=== PATIENT | male | born 1955 | race Caucasian/White ===

== ENCOUNTER → 2020-10-30 | Outpatient (CLI) | payer OTHER | END | disposition home or self-care (01) | LOC: OIH 12:37 | PROVIDERS: ATTEND Internal Medicine Cardiovascular Disease | DX: Z13.6 Encounter for screening for cardiovascular disorders (principal) | CPT/HCPCS: 75571 ==

== ENCOUNTER 2021-08-20 07:45 | Day surgery (SDC) | payer MEDICARE ==
[2021-08-19 10:24] LABS: BASOPHILS % (AUTO) 0.4 % (0.0-5.0); EOSINOPHILS % (AUTO) 0.7 % (0.0-8.0); HEMATOCRIT 45.5 % (42-54); LYMPHOCYTES % (AUTO) 40.4 % (21.0-51.0); MEAN CORPUSCULAR HGB CONC 32.1 g/dL (32.0-36.0); MEAN CORPUSCULAR VOLUME 90.5 fL (79-99); MONOCYTES % (AUTO) 7.4 % (3.0-13.0); NEUTROPHILS % (AUTO) 50.7 % (40.0-77.0); PLATELET COUNT (AUTO) 177 K/uL (130-400); RED BLOOD CELL COUNT(AUTO) 5.03 MIL/uL (4.50-6.20); RED CELL DISTRIBUTION WIDTH 12.8 % (11.0-15.5); WHITE BLOOD COUNT (AUTO) 6.8 K/uL (4.8-10.8)
[2021-08-19 10:35] LABS: CREATININE 1.1 mg/dL (0.5-1.5); POTASSIUM 4.2 mmol/L (3.5-5.1)
[2021-08-19 10:40] LABS: INR 1.12 (0.85-1.15); PROTHROMBIN TIME 12.1 SEC (9.6-11.6)
[2021-08-19 10:41] LABS: PARTIAL THROMBOPLASTIN TIME 26.2 SEC (26.3-35.5)
[~2021-08-20] VITALS: Ht 172.7 cm; Wt 84.2 kg
[2021-08-20] VITALS (10 sets, daily range): BP systolic 99–125; BP diastolic 64–74
[~2021-08-20 07:45] MED LIST: 0.9% NACL 500ML IV.SOLN 500 ML IV SCH; ASPI-1443 PO; CEFAZOLIN SODIUM 1 GM VIAL IVP SCH; CLON1TAB12 PO; LISI1TAB32 PO; METO-408 PO; MVIT PO; ROSU10TA28 PO; saw palmetto PO; testosterone PO; vitamin b12 PO
[2021-08-20] MEDS ORDERED: 0.9%NACL 1000ML 1,000 ML IV ONE (08:50)
[2021-08-20] MEDS ORDERED: BUPIVACAINE/PF 0.25% 30ML VIAL IJ ONE (11:57)
[2021-08-20] MEDS ORDERED: MEPERIDINE-PF 25 MG/ML SYG ONE ×3 (11:57→12:51)
[2021-08-20] MEDS ORDERED: LIDOCAINE HCL 1% MDV 50ML VIAL ONE (11:58)
[2021-08-20] MEDS ORDERED: MIDAZOLAM HCL 1 MG/ML 2ML VIAL ONE ×3 (11:58→12:51)
[2021-08-20] MEDS ORDERED: IOHEXOL-350 50ML VIAL IV ONE (12:54)
[2021-08-20] MEDS ORDERED: ACETAMINOPHEN 325 MG TAB ONE (16:11)
== END 2021-08-20 17:30 | disposition home or self-care (01) ==
LOC: DAH 07:45
PROVIDERS: ATTEND Internal Medicine Cardiovascular Disease
DX: G90.01 Carotid sinus syncope (principal); Z20.822 Contact with and (suspected) exposure to COVID-19; I25.10 Atherosclerotic heart disease of native coronary artery without angina pectoris; I10 Essential (primary) hypertension; E78.5 Hyperlipidemia, unspecified; Z79.01 Long term (current) use of anticoagulants; Z79.82 Long term (current) use of aspirin; Z79.899 Other long term (current) drug therapy; Z90.49 Acquired absence of other specified parts of digestive tract; Z98.890 Other specified postprocedural states; Z82.49 Family history of ischemic heart disease and other diseases of the circulatory system; Z83.3 Family history of diabetes mellitus
CPT/HCPCS: 33208; 36415; 71045; 80048; 85025; 85610; 85730; 93005; A4215; A4216; A4221; A4222; A4223 ×3; A4606; A4663; A6260; C1785; C1898 ×2; J0690; J2175 ×3; J2250 ×3; J3490 ×2; J7030; Q9967; 99156; 99157

== ENCOUNTER 2023-08-27 08:51 | Emergency (ER) | payer MEDICARE ==
[~2023-08-27] VITALS: Ht 172.7 cm; Wt 80.7 kg
[~2023-08-27 08:51] MED LIST changes: -0.9% NACL 500ML IV.SOLN 500 ML IV SCH; -CEFAZOLIN SODIUM 1 GM VIAL IVP SCH; -LISI1TAB32 PO; +LISI1TAB49 PO
[2023-08-27 09:57] LABS: BASOPHILS # (AUTO) 0.04 K/uL (0.00-0.20); BASOPHILS % (AUTO) 0.5 % (0.0-5.0); EOSINOPHILS # (AUTO) 0.08 K/uL (0.00-0.70); EOSINOPHILS % (AUTO) 0.9 % (0.0-8.0); HEMATOCRIT 39.8 % (42-54); IMMATURE GRANULOCYTE ABSOLUTE 0.03 K/uL (0-1); LYMPHOCYTES # (AUTO) 2.4 K/uL (1.0-4.8); LYMPHOCYTES % (AUTO) 27.6 % (21.0-51.0); MEAN CORPUSCULAR HEMOGLOBIN 29.8 pg (27.0-33.0); MEAN CORPUSCULAR HGB CONC 33.7 g/dL (32.0-36.0); MEAN CORPUSCULAR VOLUME 88.6 fL (79-99); MONOCYTES # (AUTO) 0.8 K/uL (0.1-1.0); NEUTROPHILS # (AUTO) 5.3 K/uL (1.8-7.7); NEUTROPHILS % (AUTO) 61.6 % (40.0-77.0); PLATELET COUNT (AUTO) 160 K/uL (130-400); RED BLOOD CELL COUNT(AUTO) 4.49 MIL/uL (4.50-6.20); RED CELL DISTRIBUTION WIDTH 12.7 % (11.0-15.5); WHITE BLOOD COUNT (AUTO) 8.6 K/uL (4.8-10.8)
[2023-08-27 10:07] LABS: BILIRUBIN,TOTAL 0.4 mg/dL (0.2-1.0); CREATININE 1.2 mg/dL (0.5-1.5); POTASSIUM 3.9 mmol/L (3.5-5.1); TOTAL PROTEIN, SERUM 7.5 g/dL (6.0-8.3); URIC ACID 7.8 mg/dL (2.6-7.2)
[2023-08-27] MEDS ORDERED: ALLO100T PO (10:31)
[2023-08-27] MEDS ORDERED: MELO-106 PO (10:31)
[2023-08-27 10:54] VITALS: BP 136/75; PULSE 75; RESP 18; O2SAT 98
[2023-08-27] MEDS ORDERED: ACETAMINOPHEN WITH CODEINE 1 TAB TAB PO ONE (11:00)
== END 2023-08-27 11:15 | disposition home or self-care (01) ==
LOC: EDH 08:51
DX: M10.9 Gout, unspecified (principal); M79.671 Pain in right foot; M79.676 Pain in unspecified toe(s); I10 Essential (primary) hypertension; Z79.82 Long term (current) use of aspirin; Z79.899 Other long term (current) drug therapy; Z98.890 Other specified postprocedural states; Z88.0 Allergy status to penicillin; Z88.8 Allergy status to other drugs, medicaments and biological substances
CPT/HCPCS: 36415; 73660; 80053; 84550; 85025

== ENCOUNTER → 2024-03-20 | Outpatient (CLI) | payer MEDICARE ==
[~2024-03-20] MED LIST changes: +ALLO100T PO; +MELO-106 PO
[2024-03-20] MEDS: REGADENOSON 0.4 MG/5 ML PF SYG IVP ONE (13:43)
== END | disposition home or self-care (01) ==
LOC: SHCH 07:58
PROVIDERS: ATTEND Internal Medicine Cardiovascular Disease
DX: I25.10 Atherosclerotic heart disease of native coronary artery without angina pectoris (principal)
CPT/HCPCS: 78452; 96374; 93017; J2785; A9500 ×2

== ENCOUNTER → 2024-06-07 | Outpatient (CLI) | payer MEDICARE ==
[~2024-06-07] MED LIST changes: -ROSU10TA28 PO; +ROSU10TA72 PO
== END | disposition home or self-care (01) ==
LOC: RESP 14:22
PROVIDERS: ATTEND Internal Medicine Cardiovascular Disease
DX: R06.02 Shortness of breath (principal); R06.00 Dyspnea, unspecified
CPT/HCPCS: 94060

== ENCOUNTER → 2024-06-26 | Outpatient (CLI) | payer MEDICARE ==
[2024-06-26 16:22] LABS: CREATININE 1.4 mg/dL (0.5-1.3); POTASSIUM 3.9 mmol/L (3.5-5.1)
== END | disposition home or self-care (01) ==
LOC: LAB 15:41
PROVIDERS: ATTEND Internal Medicine Cardiovascular Disease
DX: I10 Essential (primary) hypertension (principal)
CPT/HCPCS: 36415; 80048

== ENCOUNTER → 2024-07-31 | Outpatient (CLI) | payer MEDICARE ==
[~2024-07-31] MED LIST changes: +IOHEXOL 350 MG/ML 100ML INFUS..BTL IV ONE
== END | disposition home or self-care (01) ==
LOC: RAH 10:49
PROVIDERS: ATTEND Internal Medicine Cardiovascular Disease
DX: I25.10 Atherosclerotic heart disease of native coronary artery without angina pectoris (principal)
CPT/HCPCS: 75574; Q9967